=== PATIENT | female | born 1970 | race Caucasian/White ===

== ENCOUNTER 2022-07-14 14:54 | Outpatient (CLI) | payer BC, SELFPAY ==
[2022-07-14 16:19] LABS: Chloride* 99 mmol/L (96-114); Sodium* 138 mmol/L (135-149)
[2022-07-14 16:22] LABS: Blood Urea Nitrogen* 16 mg/dL (7-30); Calcium* 9.9 mg/dL (8.4-10.6); Carbon Dioxide* 27 mmol/L (20-32); Creatinine* 0.7 mg/dL (0.5-1.5); Estimated Glomerular Filt Rate 105 ml/min; Glucose* 206 mg/dL (60-115)
[2022-07-14 16:54] LABS: Thyroid Stimulating Hormone* 0.577 uIU/mL (0.270-4.20)
== END 2022-07-14 14:55 | disposition home or self-care (01) ==
LOC: NFLDREF 14:55
PROVIDERS: PCP Family Medicine; Visit Provider Family Medicine
DX: R53.83 Other fatigue (principal)
CPT/HCPCS: 80048; 84443

== ENCOUNTER 2022-08-05 09:00 | Outpatient (RCR) | payer BC, SELFPAY ==
--- NOTE | 2022-08-05 12:48 | PT.OPDNX ---
[facility] Daily Note PT [facility] Outpatient Daily Note Start: 03/11/22 10:44 Freq: Status: Active Protocol: Document 08/05/22 09:01 BONNIE (Rec: 08/05/22 10:11 BONNIE [id number]) E-signed By Maricel Olsen, PT PT OP Daily Progress Note Visit Information Note Type Daily Note Visit Number 9 Insurance Information Insurance Name [employer] Medical Diagnosis Mixed UI - stress and urge Treating Diagnosis leaking of urine urgency of urine weakness Subjective Subjective Pt returns to PT after not being seen X 2 months. She had overall done well but continues to have leaking with coughing, michelle if sitting, and when getting out of bed. Able to control urinary urges and hold her urine better. Started to have pain again in her R hip/pelvic region and was wondering if her PFM were spasming again. Precautions Treatment Precautions/Contraindications Diabetes - type 1 depression Objective Functional Test Performed & Score PF questionnaire- bladder: Bowel: Prolapse 01/23 sexual Patient Instructed in Risks/Benefits Yes Therapeutic Exercise Therapeutic Exercise Minutes (minutes) 15 Therapeutic Exercise: To Restore Did reassess Kegels - overall Functional Status good firing and ability to relax between contractions. Did find decreased firing along R iliococcygeus -- tried muscle tapping during contractions with an improvement in her firing. Long hold fatigue after approx 7-8 sec. Pt will continue with Kegels as instructed. Did reinstruct pt on quick Kegels to improve breathing with quick contractions to better reduce YRN symptoms with coughing. Manual Therapy Techniques Manual Therapy Minutes (minutes) 30 Manual Therapy Techniques STM, TPR, lengthening along all layers of PFM -- with emphasis along bulbo from - , and R OI due to hypertonicity and spasms Did find a R ant ilial rotation. MET for R ant ilial rotation. Did instruct pt on self correct technique to try to self manage symptoms. Self Care Management Training Self-Care Activity Minutes (minutes) 5 Self Care Management Training Educated on log rolling and transfers to reduce leaking with supine to sit. Also discussed doing gentle Kegels in the am as well as pelvic rocking to try to improve brains awareness of PFM. Treatment Minutes Timed Code Treatment Minutes 50 Total Treatment Time 50 Billing Units Manual Therapy Units 2 Therapeutic Exercise Units 1 Assessment/Impression Assessment/Impression Pt has done well since her last appt approx 2 months ago. Urinary symptoms are better. Still has leaking with coughing and with supine to sit. Did work on ways to try to reduce YRN symptoms. Decreased firing along the R iliococcygeus with Kegel. Did find increased tone along R OI and pelvic asymmetries. Educated on ways to self manage her ilial rotations/ symptoms. Pt is appropriate for further PT sessions. Will progress into more core and PFM exs as able, work on MT to reduce spasms and improve lumbopelvic function. Plan of Care Physical Therapy Goals Short term goals to be achieved in 4 weeks 1. Able to state 4 of 4 urge suppression/bladder retraining strategies MET 2. Pt will increase duration between voiding to 1X per 2-4 hours, 5 out MET of 7 days 3. Pt will demonstrate use of functional PFM contraction by performing a precontraction to eliminate UI during cough, sneezing, lifting. 4. Will demonstrate an increase in PFM endurance to at least 8 sec holds X 10 reps for ability to reduce UI symptoms at work and with ADLS. IMPROVED residential goals to be achieved in 12 weeks. 1. Independent with self-care program for symptom reduction . IMPROVED 2. Will report an 80% reduction in her UI symptoms as seen with ability to stay dry 3 out of 4 weeks. IMPROVED 3. Pt will report no leaking with coughing and sneezing, with running IMPROVED water and with urges.. 4. Pt will report ability to fully empty bladder >80% of the time. Daily Plan of Care Change POC; See Comments Daily Plan of Care Comments Will continue with PT for up to 6 more session, as/if appropriate, to address her concerns yet with Recertification Information Provider Signature Shows Agreement With POC & Medical Necessity Physician Comment/Change Comment or Changes Physician NPI Number #
== END 2022-11-02 13:52 | disposition home or self-care (01) ==
PROVIDERS: PCP Obstetrics & Gynecology; Visit Provider Obstetrics & Gynecology
DX: N39.46 Mixed incontinence (principal); Z51.89 Encounter for other specified aftercare
CPT/HCPCS: 97110; 97140

== ENCOUNTER 2022-09-09 09:53 | Outpatient (CLI) | payer BC, SELFPAY ==
[2022-09-09 11:09] LABS: Albumin* 4.6 g/dL (3.3-5.0)
[2022-09-09 11:10] LABS: Chloride* 106 mmol/L (96-114); Potassium* 4.5 mmol/L (3.6-5.1); Sodium* 138 mmol/L (135-149)
[2022-09-09 11:12] LABS: Aspartate Amino Transferase* 23 U/L (12-35); Bilirubin Total* 0.6 mg/dL (0.1-1.5); Blood Urea Nitrogen* 15 mg/dL (7-30); Carbon Dioxide* 25 mmol/L (20-32); Cholesterol* 244 mg/dL (90-199); Creatinine* 0.6 mg/dL (0.5-1.5); Estimated Glomerular Filt Rate 109 ml/min; Total Protein* 7.2 g/dL (6.0-8.3)
[2022-09-09 11:13] LABS: Alanine Aminotransferase* 23 U/L (4-35); Alkaline Phosphatase* 106 U/L (40-150); Calcium* 9.7 mg/dL (8.4-10.6); Glucose* 143 mg/dL (60-115); HDL Cholesterol* 50 mg/dL (>=50); LDL Cholesterol Calculated 174 mg/dL (<100); Triglycerides* 100 mg/dL (40-149)
== END 2022-09-09 09:54 | disposition home or self-care (01) ==
PROVIDERS: PCP Family Medicine; Visit Provider Obstetrics & Gynecology
DX: E78.5 Hyperlipidemia, unspecified (principal); E03.9 Hypothyroidism, unspecified; E13.9 Other specified diabetes mellitus without complications
CPT/HCPCS: 80053; 80061

== ENCOUNTER 2022-11-14 14:34 | Outpatient (CLI) | payer OTHER, SELFPAY ==
--- NOTE | 2022-11-14 14:40 | CRLHL7_ITS ---
For Patients: As a result of the Century Cures Act, medical imaging exams and procedure reports are released immediately into your electronic medical record. You may view this report before your referring provider. If you have questions, please contact your health care provider. BILATERAL SCREENING MAMMOGRAM WITH COMPUTER-AIDED DETECTION AND TOMOSYNTHESIS TECHNIQUE: CC, MLO and Implant displaced views were obtained. These mammographic images have been obtained using full-field digital technique. These mammographic images were interpreted with the benefit of computer-aided detection. Breast Tomosynthesis was used in this interpretation. COMPARISON FILM: 07/19/21, 06/27/14, 06/20/13. FINDINGS: The breasts are heterogeneously dense, which may obscure small masses IMPRESSION: There is no radiographic evidence for malignancy. ASSESSMENT: BI-RADS Category 2: Benign RECOMMENDATION: Routine screening mammogram in 1 year. A lay language report of this examination will be provided to the patient. Wisam Quan M.D. Diagnostic Radiologist [email or web address] YULI/jake Transcribed: 1:46 p.tracy joseph/Dictated by: Wisam Quan MD @ 11/15/2022 9:10:00 AM (Electronically Signed)
== END 2022-11-14 14:35 | disposition home or self-care (01) ==
LOC: MAMMO 14:35
PROVIDERS: PCP Family Medicine; Visit Provider Obstetrics & Gynecology
DX: Z12.31 Encounter for screening mammogram for malignant neoplasm of breast (principal); R92.2 Inconclusive mammogram
CPT/HCPCS: 77063; 77067

== ENCOUNTER 2023-03-21 20:33 | Outpatient (CLI) | payer OTHER, SELFPAY | END 2023-03-21 20:34 | disposition home or self-care (01) | LOC: SLEEP 20:33 | PROVIDERS: PCP Family Medicine; Visit Provider Internal Medicine | DX: G47.33 Obstructive sleep apnea (adult) (pediatric) (principal); E66.9 Obesity, unspecified | CPT/HCPCS: 95811 ==

== ENCOUNTER 2023-03-28 13:45 | Outpatient (RCR) | payer OTHER, SELFPAY | END 2023-05-29 14:36 | disposition home or self-care (01) | PROVIDERS: PCP Family Medicine; Visit Provider Internal Medicine | DX: M25.561 Pain in right knee (principal); R53.1 Weakness; Z51.89 Encounter for other specified aftercare | CPT/HCPCS: 97110; 97140; 97161 ==

== ENCOUNTER 2023-04-27 12:06 | Outpatient (CLI) | payer OTHER, SELFPAY ==
--- NOTE | 2023-04-27 08:38 | W.ANESCHARGE ---
Anesthesia Charges Start Date/Time Anesthesia Start Date: 04/27/23 Anesthesia Start Time: 13:05 Stop Date/Time Anesthesia Stop Date: 04/27/23 Anesthesia Stop Time: 13:25
--- NOTE | 2023-04-27 13:26 | W.ANESCHARGE ---
Anesthesia Charges Start Date/Time Anesthesia Start Date: 04/27/23 Anesthesia Start Time: 13:05 Stop Date/Time Anesthesia Stop Date: 04/27/23 Anesthesia Stop Time: 13:25
== END 2023-04-27 12:07 | disposition home or self-care (01) ==
LOC: OP CLINIC 12:06
PROVIDERS: PCP Family Medicine; Visit Provider Surgery
DX: R13.10 Dysphagia, unspecified (principal); K44.9 Diaphragmatic hernia without obstruction or gangrene; K31.89 Other diseases of stomach and duodenum
CPT/HCPCS: 43239; 731; 88305; J2405; J2704; J3490

== ENCOUNTER 2023-09-08 13:07 | Outpatient (CLI) | payer OTHER, SELFPAY | END 2023-09-08 13:08 | disposition home or self-care (01) | PROVIDERS: PCP Family Medicine; Visit Provider Family Medicine | DX: E10.9 Type 1 diabetes mellitus without complications (principal); R53.83 Other fatigue; M25.50 Pain in unspecified joint; E78.5 Hyperlipidemia, unspecified | CPT/HCPCS: 80048; 80061; 86039; 86140; 86200; 86431 ==

== ENCOUNTER 2023-09-29 11:11 | Outpatient (CLI) | payer OTHER, SELFPAY ==
--- OUTSIDE RECORDS SUMMARY | 2023-10-02 12:42 | XMS_ITS | Clinical Summary ---
Author Name Unknown Organization [facility] Address [address] [place] [address] Care Team Providers Care Cocoa Room Operator Name Role Phone Wisam Macedo MD Primary Care Provider + [phone] Source Comments You are receiving this document as you are listed as the primary care provider,follow-up provider, or the patient has been referred to you for consultation.This is in compliance with the Medicare and[facility] E[facility] Incentive [facility],which states Providers who transition their patient to another setting of careor provider of care or refers their patient to another provider of care shouldprovide summary care record for each transition of care or referral. [employer] Allergies Active Allergy Reactions Criticality Noted Date Comments Amoxicillin Rash 07/05/2021 Statins Other, see comments 07/05/2021 Myalgia Sulfa Antibiotics Rash 07/05/2021 Medications Medication Sig Dispensed Refills Start Date End Date Status MULTIPLE VITAMIN OR 0 Activ e insulin lispro (HUMALOG) 100 UNIT/ML injection vial Inject subcutaneously three times daily before meals. 0 Active Glucose Blood (ONETOUCH ULTRA BLUE ) 0 Active OneTouch Delica Lancets 30G MISC 0 Active cetirizine (ZYRTEC) 10 MG tablet Take 10 mg by mouth daily. 0 Active omeprazole (PRILOSEC) 20 MG capsule Take 20 mg by mouth daily. Take 1 hour before a meal. 0 Active sertraline (ZOLOFT) 50 MG tablet 0 07/01/2021 Active liothyronine (CYTOMEL) 5 MCG tablet Take 5 mcg by mouth daily. 0 06/20/2021 Active Continuous Blood Gluc Transmit (DEXCOM G6 TRANSMITTER) MISCIndications:Con trolled type 1 diabetes mellitus without complication (HRC),Obesity, unspecified obesity severity, unspecified obesity type (HRC) Change once every 90 days 1 Each 3 07/07/2021 Active Continuous Blood Gluc Sensor (DEXCOM G6 SENSOR) MISCIndications:Con trolled type 1 diabetes mellitus without complication (HRC),Obesity, unspecified obesity severity, unspecified obesity type (HRC) Use once every 10 days 9 Each 3 07/07/2021 Active Continuous Blood Gluc Salesperson Meats (DEXCOM G6 APPLICATIONS SPECIALIST) DEVIIndications:Con trolled type 1 diabetes mellitus without complication (HRC),Obesity, unspecified obesity severity, unspecified obesity type (HRC) Use once 1 Each 0 01/19/2022 Active Active Problems Problem Noted Date Diagnosed Date Controlled type 1 diabetes mellitus without comp lication 07/07/2021 Obesity, unspecified obesity severity, unspecified obesity type 07/07/2021 Social History Tobacco Use Types Packs/Day Years Used Date Smoking Tobacco: Never Smokeless Tobacco: Never Sex and Gender Information Value Date Recorded Sex Assigned at Not on file Gender Identity Not on file Sexual Orientation Not on file Last Filed Vital Signs Vital Sign Reading Time Taken Comments Blood Pressure 133/77 07/07/2021 1:17 PM CDT Pulse 77 07/07/2021 1:17 PM CDT Temperature - - Respiratory Rate - - Oxygen Saturation - - Inhaled Oxygen Concentration - - Weight 90 kg (198 lb 8 oz) 07/07/2021 1:17 PM CD T Height 160 cm (5' 3) 07/07/2021 1:17 PM CDT Body Mass Index 35.16 07/07/2021 1:17 PM CDT Plan of Treatment Health Maintenance Due Date Last Done Comments Cervical Cancer Screening Due 1970 Colon Cancer Screening Plan Due 1970 Diabetes: Eye Exam 1970 Diabetes: Foot Exam 1970 Diabetes: Lipid Panel 1970 Diabetes: Urine Microalbumin 1970 Hep C Screening (Preventive Services) 1970 HepB (1) 1970 Mammogram 1970 COVID-19 Vaccine (#1) 06/15/1971 HIV Screening (Preventive Services) 1986 Adult Preventive Visit 1988 Pneumococcal (2 - PCV) 05/29/2014 05/29/2013 Zoster/Shingles (1 of 2) 2020 Diabetes: HGBA1C 10/07/2021 07/07/2021 Diabetes: Creatinine 07/07/2022 07/07/2021 Influenza (#1) 2023 06/27/2014, 07/01/2013, 07/30/2012 DTaP/Tdap/Td (3 - Tdap) 05/08/2024 05/08/20 14, 09/11/2009 HepA Aged Out No longer eligi ble based on patient's age to complete this topic Hib Aged Out No longer eligi ble based on patient's age to complete this topic IPV (Polio) Aged Out No longer eligi ble based on patient's age to complete this topic MCV4 Aged Out No longer eligi ble based on patient's age to complete this topic Care Teams Cocoa Room Operator Relationship Specialty Start Date End Date Wisam Macedo MD [address] [place] [address] PCP - General Family Practice 07/07/21
== END 2023-09-29 11:12 | disposition home or self-care (01) ==
LOC: NFLDREF 10-02 12:38
PROVIDERS: PCP Family Medicine; Referring Provider Family Medicine; Visit Provider Family Medicine
DX: J02.9 Acute pharyngitis, unspecified (principal)
CPT/HCPCS: 87651

== ENCOUNTER 2023-11-16 10:22 | Outpatient (CLI) | payer OTHER, SELFPAY ==
--- NOTE | 2023-11-16 10:45 | MM_ITS ---
Patient: CIELO SHAH Facility:?[facility] Patient ID:?[id number] Site Patient ID:?[id number]. Site :?1970 Study:?XRay-Breast Bilateral 3D W/CAD-11/16/2023 11:41:11 AM Ordering Physician:Romero Final Report: BILATERAL SCREENING MAMMOGRAM WITH COMPUTER-AIDED DETECTION AND TOMOSYNTHESIS TECHNIQUE: CC and MLO views were obtained. These mammographic images have been obtained using full-field digital technique. These mammographic images were interpreted with the benefit of computer-aided detection. Breast Tomosynthesis was used in this interpretation. COMPARISON FILM: 11/14/22, 07/19/21, 06/27/14. FINDINGS: There are scattered areas of fibroglandular density. IMPRESSION: There is no radiographic evidence for malignancy. ASSESSMENT: BI-RADS Category 2: Benign RECOMMENDATION: Routine screening mammogram in 1 year. A lay language report of this examination will be provided to the patient. Wisam Quan M.D. Diagnostic Radiologist [email or web address] DSM/sp R& Transcribed: 7:13 p.m. SP/Dictated by: Wisam Quan MD @ 11/16/2023 12:32:00 PM Signed by:?Wisam Quan MD @11/17/2023 5:39:10 AM (Electronic Signature)
== END 2023-11-16 10:23 | disposition home or self-care (01) ==
LOC: MAMMO 10:23
PROVIDERS: PCP Family Medicine; Visit Provider Family Medicine
DX: Z12.31 Encounter for screening mammogram for malignant neoplasm of breast (principal)
CPT/HCPCS: 77063; 77067

== ENCOUNTER 2024-07-16 07:45 | Outpatient (CLI) | payer OTHER, SELFPAY ==
--- OUTSIDE RECORDS SUMMARY | 2024-07-18 11:15 | XMS_ITS | Clinical Summary ---
Author Organization [facility] Address [address] [place] [address] Care Team Providers Care Monument Erector Name Role Phone Wisam Macedo MD Primary Care Provider + [phone] Source Comments You are receiving this document as you are listed as the primary care provider,follow-up provider, or the patient has been referred to you for consultation.This is in compliance with the Medicare and[facility] EHR Incentive Program,which states Providers who transition their patient to another setting of careor provider of care or refers their patient to another provider of care shouldprovide summary care record for each transition of care or referral. [employer] Allergies Active Allergy Reactions Criticality Noted Date Comments Amoxicillin Rash 07/05/2021 Statins Other, see comments 07/05/2021 Myalgia Sulfa Antibiotics Rash 07/05/2021 Medications Medication Sig Dispensed Refills Start Date End Date Status MULTIPLE VITAMIN OR Activ e insulin lispro (HUMALOG) 100 UNIT/ML injection vial Inject subcutaneously three times daily before meals. Active Glucose Blood (ONETOUCH ULTRA BLUE ) Active OneTouch Delica Lancets 30G MISC Active cetirizine (ZYRTEC) 10 MG tablet Take 10 mg by mouth daily. Active omeprazole (PRILOSEC) 20 MG capsule Take 20 mg by mouth daily. Take 1 hour before a meal. Active sertraline (ZOLOFT) 50 MG tablet 07/01/2021 Active liothyronine (CYTOMEL) 5 MCG tablet Take 5 mcg by mouth daily. 06/20/2021 Active Continuous Blood Gluc Transmit (DEXCOM [...] Each 3 07/07/2021 Active Continuous Blood Gluc Taxonomist (DEXCOM G6 MANUFACTURERS REPRESENTATIVE) DEVIIndications:Con trolled type 1 diabetes mellitus without complication (HRC),Obesity, unspecified obesity severity, unspecified obesity type (HRC) Use once 1 Each 01/19/2022 Active Active Problems Problem Noted Date [...] 1970 Hep C Screening (Preventive Services) 1970 Mammogram 1970 HIV Screening (Preventive Services) 1986 Adult Preventive Visit 1988 HepB (1) 1989 Pneumococcal (2 - PCV) 05/29/2014 05/29/2013 Zoster/Shingles (1 of 2) 2020 Diabetes: HGBA1C 10/07/2021 07/07/2021 Diabetes: Creatinine 07/07/2022 07/07/2021 DTaP/Tdap/Td (3 - Tdap) 05/08/2024 05/08/20 14, 09/11/2009 COVID-19 Vaccine (1 - 2023-2 5 season) 2024 Influenza (#1) 2024 06/27/2014, 07/01/2013, 07/30/2012 HepA Aged Out No longer eligi ble based on patient's age to complete this topic Hib Aged Out No longer eligi ble based on patient's age to complete this topic IPV (Polio) Aged Out No longer eligi ble based on patient's age to complete this topic RSV Aged Out No longer eligi ble based on patient's age to complete this topic MCV4 Aged Out No longer eligi ble based on patient's age to complete this topic Procedures Procedure Name Priority Date/Time Associated Diagnosis Comments BASIC METABOLIC PANEL Routine 07/07/2021 1:59 PM CDT Controlled type 1 diabetes mellitus without complication (HRC) Obesity, unspecified obesity severity, unspecified obesity type POCT GLYCOSYLATED HEMOGLOBIN (HGB A1C) Routine 07/07/2021 1:47 PM CDT Controlled type 1 diabetes mellitus without complication (HRC) Obesity, unspecified obesity severity, unspecified obesity type from Last 3 Months or Most Recently Relevant to Health Maintenance Results * (ABNORMAL) BMP - Basic Metabolic Panel (07/07/2021 1:59 PM CDT) Sodium 138 136 - 145 mmol/L 07/07/2021 3:33 PM CDT [facility] Potassium 4.4 3.5 - 5.1 mmol/L 07/07/2021 3:33 PM CDT [facility] Chloride 104 98 - 109 mmol/L 07/07/2021 3:33 PM CDT [facility] CO2 22 20 - 29 mmol/L 07/07/2021 3:33 PM CDT [facility] Anion Gap 12 7 - 16 mmol/L 07/07/2021 3:33 PM T [facility] Calcium 9.3 8.4 - 10.4 mg/dL 07/07/2021 3:33 PM CDT [facility] BUN 12 7 - 26 mg/dL 07/07/2021 3:33 PM CDT [facility] Creatinine 0.70 0.55 - 1.02 mg/dL 07/07/2021 3:33 PM CDT [facility] GFR, Estimated >60 >60 mL/min/1.7 3m2 07/07/2021 3:33 PM CDT [facility] Glucose 255(H) 70 - 100 mg/dL 07/07/2021 3:33 PM CDT [facility] Comment:The given reference range is for the fasting state. Non-fasting reference range for glucose is 70 - 180 mg/dL. Hours Fasting 2 07/07/2021 3:33 PM CDT [facility] Blood Venipuncture / Unknown 07/07/2021 1:59 PM CDT 07/07/2021 1:59 PM CDT [facility] Performing Organization Address City/[facility]/ZIP Co de Phone Number [facility] [address] [place] [address], [facility] [phone] * (ABNORMAL) POCT glycosylated hemoglobin (Hb A1C) (07/07/2021 1:47 PM CDT) [facility] Hemoglobin A1C (Rapid) 7.7(A) 5.6 % POCT Cartridge Lot# [id number] POCT Blood 07/07/2021 1:47 PM CDT Keena EDEN ET POINT OF CARE TEST ENTER/EDIT ORDERABLES POCT from Last 3 Months or Most Recently Relevant to Health Maintenance Care Teams Monument Erector Relationship Specialty Start Date End Date Wisam Macedo MD [address] [place] [address] PCP - General Family Practice 07/07/21
== END 2024-07-16 07:46 | disposition home or self-care (01) ==
LOC: NFLDREF 07-18 11:12
PROVIDERS: PCP Family Medicine; Referring Provider Family Medicine; Visit Provider Family Medicine
DX: E10.9 Type 1 diabetes mellitus without complications (principal); E66.01 Morbid (severe) obesity due to excess calories; F90.0 Attention-deficit hyperactivity disorder, predominantly inattentive type
CPT/HCPCS: 80048; 80061

== ENCOUNTER 2024-08-15 06:34 | Outpatient (CLI) | payer OTHER, SELFPAY ==
--- OUTSIDE RECORDS SUMMARY | 2024-08-15 06:37 | XMS_ITS | Clinical Summary ---
Author Organization [facility] Address [address] [address] Care Team Providers Care Tie Bucker Name Role Phone Wisam Macedo MD Primary Care Provider + [phone] Source Comments You are receiving this document as you are listed as the primary care provider,follow-up provider, or the patient has been referred to you for consultation.This is in compliance with the Medicare and[facility] EHR Incentive Program,which states Providers who transition their patient to another setting of careor provider of care or refers their patient to another provider of care shouldprovide summary care record for each transition of care or referral. [employer] Allergies Active Allergy Reactions Criticality Noted Date [...] Each 3 07/07/2021 Active Continuous Blood Gluc Loader Unloader (DEXCOM G6 BUSINESS ANALYSIS CONSULTANT) DEVIIndications:Con trolled type 1 diabetes mellitus without [...] Zoster/Shingles (1 of 2) 2020 Diabetes: HGBA1C 01/05/2022 07/07/2021 Diabetes: Creatinine 07/07/2022 07/07/2021 DTaP/Tdap/Td (3 [...] - 145 mmol/L 07/07/2021 3:33 PM CDT [facility] Potassium 4.4 3.5 - 5.1 mmol/L 07/07/2021 3:33 PM CDT [facility] Chloride 104 98 - 109 mmol/L 07/07/2021 3:33 PM CDT [facility] CO2 22 20 - 29 mmol/L 07/07/2021 3:33 PM CDT [facility] Anion Gap 12 7 - 16 mmol/L 07/07/2021 3:33 PM T [facility] Calcium 9.3 8.4 - 10.4 mg/dL 07/07/2021 3:33 PM CDT [facility] BUN 12 7 - 26 mg/dL 07/07/2021 3:33 PM CDT [facility] Creatinine 0.70 0.55 - 1.02 mg/dL 07/07/2021 3:33 PM CDT [facility] GFR, Estimated >60 >60 mL/min/1.7 3m2 07/07/2021 3:33 PM CDT [facility] Glucose 255(H) 70 - 100 mg/dL 07/07/2021 3:33 PM CDT [facility] Comment:The given reference range is for the fasting state. Non-fasting reference range for glucose is 70 - 180 mg/dL. Hours Fasting 2 07/07/2021 3:33 PM CDT [facility] Blood Venipuncture / Unknown 07/07/2021 1:59 PM CDT 07/07/2021 1:59 PM CDT [facility]_1 Performing Organization Address City/[facility]/ZIP Co de Phone Number [facility] [address] [place] [address], [facility] [phone] * (ABNORMAL) POCT glycosylated hemoglobin (Hb A1C) (07/07/2021 1:47 PM CDT) [facility] Hemoglobin A1C (Rapid) 7.7(A) 5.6 % POCT Cartridge Lot# [id number] POCT Blood 07/07/2021 1:47 PM CDT Keena EDEN ET POINT OF CARE TEST ENTER/EDIT ORDERABLES POCT from Last 3 Months or Most Recently Relevant to Health Maintenance Care Teams Tie Bucker Relationship Specialty Start Date End Date Wisam Macedo MD [address] [place] [address] PCP - General Family Practice 07/07/21
--- NOTE | 2024-08-15 07:51 | W.ANESCHARGE ---
Anesthesia Charges Start Date/Time Anesthesia Start Date: 08/15/24 Anesthesia Start Time: 07:15 Stop Date/Time Anesthesia Stop Date: 08/15/24 Anesthesia Stop Time: 07:45
--- NOTE | 2024-08-15 07:54 | W.ANESCHARGE ---
Anesthesia Charges Start Date/Time Anesthesia Start Date: 08/15/24 Anesthesia Start Time: 07:15 Stop Date/Time Anesthesia Stop Date: 08/15/24 Anesthesia Stop Time: 07:45
== END 2024-08-15 06:35 | disposition home or self-care (01) ==
LOC: OP CLINIC 06:36
PROVIDERS: PCP Family Medicine; Visit Provider Surgery
DX: Z12.11 Encounter for screening for malignant neoplasm of colon (principal); D12.0 Benign neoplasm of cecum; K64.8 Other hemorrhoids; K57.30 Diverticulosis of large intestine without perforation or abscess without bleeding; Z80.0 Family history of malignant neoplasm of digestive organs; Z86.0100 Personal history of colon polyps, unspecified
CPT/HCPCS: 00811; 45385; 88305; J2704

== ENCOUNTER 2025-01-13 13:14 | Outpatient (CLI) | payer OTHER, SELFPAY ==
--- NOTE | 2025-01-13 13:20 | CRLHL7_ITS ---
For Patients: As a result of the Century Cures Act, medical imaging exams and procedure reports are released immediately into your electronic medical record. You may view this report before your referring provider. If you have questions, please contact your health care provider. INDICATION: BILATERAL SCREENING MAMMOGRAM, ASYMPTOMATIC 54 Y/O FEMALE COMPARISON: 11/16/23, 11/14/22, 07/19/21 TECHNIQUE: CC and MLO views were obtained. These mammographic images have been obtained using full-field digital technique. These mammographic images were interpreted with the benefit of computer aided detection and tomosynthesis. BREAST COMPOSITION: There are scattered areas of fibroglandular density. FINDINGS: No suspicious findings. ASSESSMENT: BI-RADS 2 Benign RECOMMENDATION: Annual screening mammogram. A lay language report of this examination will be provided to the patient. Dictated by: Wisam Quan MD @ 01/14/2025 11:25:56 (Electronically Signed)
== END 2025-01-13 13:15 | disposition home or self-care (01) ==
LOC: MAMMO 13:14
PROVIDERS: PCP Family Medicine; Visit Provider Obstetrics & Gynecology
DX: Z12.31 Encounter for screening mammogram for malignant neoplasm of breast (principal); Z98.82 Breast implant status
CPT/HCPCS: 77063; 77067

== ENCOUNTER 2025-01-24 22:45 | Outpatient (CLI) | payer OTHER, SELFPAY | END 2025-01-24 22:46 | disposition home or self-care (01) | LOC: FBOREF 22:50 | PROVIDERS: PCP Family Medicine; Visit Provider Family Medicine | DX: E10.9 Type 1 diabetes mellitus without complications (principal); K62.5 Hemorrhage of anus and rectum; K64.9 Unspecified hemorrhoids; Z79.4 Long term (current) use of insulin; Z79.85 Long-term (current) use of injectable non-insulin antidiabetic drugs | CPT/HCPCS: 80048; 82728; 84443 ==